=== PATIENT | female | born 1970 | race Caucasian/White ===

== ENCOUNTER 2018-12-22 08:44 | Inpatient (IN) | payer OTHER ==
[~2018-12-22] VITALS: Ht 160 cm; Wt 59.9 kg
[2018-12-23] MEDS ORDERED: TYLENOL #3 PO (09:05)
[2018-12-23] MEDS ORDERED: NAPR500T14 PO (09:05)
== END 2018-12-23 10:02 | disposition home or self-care (01) | DRG 743 ==
LOC: CIR.AMB 08:44 → RECOVERY 10:30 → CIR.AMB 10:30 → EDSTATUS 10:30 → CIR.AMB 12:00 → SURG 19:32
PROVIDERS: ADMIT Obstetrics & Gynecology
PROC: 0UQF0ZZ Repair Cul-de-sac, Open Approach (ICD-10-PCS; 2018-12-22)
PROC: 0USG0ZZ Reposition Vagina, Open Approach (ICD-10-PCS; 2018-12-22)
PROC: 0TJB8ZZ Inspection of Bladder, Via Natural or Artificial Opening Endoscopic (ICD-10-PCS; 2018-12-22)
PROC: 0UT97ZZ Resection of Uterus, Via Natural or Artificial Opening (ICD-10-PCS; principal; 2018-12-22 12:00)
DX: N94.4 Primary dysmenorrhea (principal); D25.1 Intramural leiomyoma of uterus; N81.11 Cystocele, midline; R87.613 High grade squamous intraepithelial lesion on cytologic smear of cervix (HGSIL)